=== PATIENT | male | born 1985 | race Hispanic/Latino ===

== ENCOUNTER 2022-12-08 13:58 | Emergency (ER) | payer BC, OTHER ==
--- OUTSIDE RECORDS SUMMARY | 2022-12-08 14:02 | XMS REPORT | Continuity of Care Document ---
:1985 Author Organization [facility] t Address [address] [place] [address] Care Team Providers Name Role Phone Markie Maria MD Primary Care Physician [facility] Attending Clinician Unavailable Unknown, Attending Attending Clinician Unavailable UNKNOWN, ATTENDING Attending Clinician Unavailable Payers Payer Name Policy Type Policy Number Effective Date Expiration Date S ource Problems This patient has no known problems. Allergies, Adverse Reactions, Alerts Allergy Allergy Status Severity Reaction(s) Onset Inactive Treating Comm ents Source Name Type Date Date Clinician NO KNOWN Drug Active Univers ALLERGIE Class ity of [facility] Social History Social Habit Start Date Stop Date Quantity Comments Source Exposure to 2022-11-28 2022-12-08 Not sure [facility] SARS-CoV-2 (event) 00:00:00 13:28:00 Medica l Branch Sex Assigned At [birth year] [facility] [place] 00:00:00 00:00:00 Medical Branch Smoking Status Start Date Stop Date Source Tobacco smoking consumption [facility] Medications This patient has no known medications. Vital Signs Vital Name Observation Time Observation Value Comments Source Systolic blood 2022-12-08 18:33:00 131 mm[Hg] Univer sity of pressure [facility] Diastolic blood 2022-12-08 18:33:00 83 mm[facility]Hg[facility] 2022-12-08 18:33:00 87 /min [facility] Body temperature 2022-12-08 18:33:00 36.56 Christine [facility] Respiratory rate 2022-12-08 18:33:00 16 /min [facility] Body height 2022-12-08 18:33:00 172.7 cm [facility] Body weight 2022-12-08 18:33:00 153.316 kg [facility] BMI 2022-12-08 18:33:00 51.39 kg/m2 [facility] Oxygen saturation in 2022-12-08 18:33:00 98 /min [facility] Arterial blood by [facility] Pulse oximetry [place] Procedures This patient has no known procedures. Encounters Start End Encounter Admission Attending Care Care Encounter Source Date/Time Date/Time Type Type Clinicians Facility Department ID 2022-12-08 2022-12-08 Nurse [facility] [id number] [facility] 13:45:00 14:05:00 Visit Unknown, Attending [facility] [id number] itto [facility] [id number] Naif as GONZALEZ?BLEA [id number] Ct bessy REGALADO [address] [place] [address] MEDICAL OFFICE BUILDING 2022-12-08 2022-12-08 Outpatient R UNKNOWN, [facility] [id number] Univers 13:45:00 13:45:00 ATTENDING ity [facility] Results This patient has no known results.
[2022-12-08 16:34] LABS: Absolute Lymphocytes (CBC) 2.3 K/uL (0.7-4.9); Hematocrit 47.8 % (39.6-49.0); Lymphocytes % 27.4 % (15.3-44.8); MCV 90.4 fL (80-100); RBC Red Blood Cell Count 5.29 M/uL (4.33-5.43)
[2022-12-08 16:51] LABS: Albumin 3.9 g/dL (3.4-5.0); Bilirubin Total 0.2 mg/dL (0.2-1.0); Potassium 4.1 mEq/L (3.5-5.1); Protein, Total 8.1 g/dL (6.4-8.2)
--- NOTE | 2022-12-08 17:39 | ER ---
Nurse's Notes [facility] Name: Manuel Mccracken Age: 37 yrs Sex: Male : 1985 Arrival Date: 12/08/2022 Time: 13:58 Bed 10 Private MD: Diagnosis: Acute Otalgia Presentation: 12/08 14:41 Chief complaint: Patient states: he has been being treated for an ear infection in his ap3 left ear for approx 2 weeks. He has been on antibiotics since 11/24/22 and the provider wanted him to come get evaluated to see if his infection is improving. Patient reports his hearing has improved and the pain is improving as well since starting the antibiotics. Coronavirus screen: At this time, the client does not indicate any symptoms associated with coronavirus-19. Ebola Screen: No symptoms or risks identified at this time. Initial Sepsis Screen: Does the patient meet any 2 criteria? No. Patient's initial sepsis screen is negative. Does the patient have a suspected source of infection? Yes: Other: recent infection dx. Risk Assessment: Do you want to hurt yourself or someone else? Patient reports no desire to harm self or others. Onset of symptoms was November 24, 2022. 14:41 Method Of Arrival: Ambulatory ap3 14:41 Acuity: JAZZY 4 ap3 Triage Assessment: 14:48 General: Appears in no apparent distress. Behavior is calm, cooperative, appropriate ap3 for age. Pain: Denies pain. EENT: Reports recent left ear infection. Neuro: Level of Consciousness is awake, alert, obeys commands, Oriented to person, place, time, situation. Cardiovascular: Patient's skin is warm and dry. Respiratory: Airway is patent Respiratory effort is even, unlabored, Respiratory pattern is regular, symmetrical. Historical: - Allergies: 14:44 No Known Allergies; ap3 - Home Meds: 14:44 terbinafine HCl 250 mg oral tablet daily [Active]; linezolid 600 mg oral tablet 1 tab 2 ap3 times per day [Active]; phentermine 37.5 mg oral tablet daily [Active]; - PMHx: 14:44 Hypertensive disorder; ap3 - Immunization history:: Client reports having NOT received the Covid vaccine. - Social history:: Smoking status: Reported history of juuling and/or vaping. Screenin:48 [facility] ED Fall Risk Assessment (Adult) History of falling in the last 3 months, ap3 including since admission No falls in past 3 months (0 pts). Abuse screen: Denies threats or abuse. Nutritional screening: No deficits noted. 14:49 Tuberculosis screening: No symptoms or risk factors identified. ap3 Assessment: 17:26 Reassessment: No changes from previously documented assessment. Patient and/or family mb9 updated on plan of care and expected duration. Pain level reassessed. Patient is alert, oriented x 3, equal unlabored respirations, skin warm/dry/pink. Vital Signs: 14:41 BP 140 / 95; Pulse 80; Resp 17; Temp 97.8; Pulse Ox 97% ; Weight 153.31 kg; Height 5 ap3 ft. 8 in. ; 18:06 BP 138 / 84; Pulse 74; Resp 20; Pulse Ox 98% on R/A; mb9 14:41 Body Mass Index 51.39 (153.31 kg, 172.72 cm) ap3 ED Course: 14:01 Patient arrived in ED. mr 14:11 Baldo Llanos PA is PHCP. jmm 14:11 Glen Sandoval MD is Attending Physician. jmm 14:44 Triage completed. ap3 14:49 Arm band placed on right wrist. ap3 14:49 Patient has correct armband on for positive identification. Adult w/ patient. ap3 16:30 Inserted saline lock: 22 gauge in right forearm, using aseptic technique. Blood zm collected. 16:30 CBC with Diff Sent. zm 16:30 CMP Sent. zm 16:30 Lipase Sent. zm 17:26 Dona Pleitez RN is Primary Nurse. mb9 17:27 No provider procedures requiring assistance completed. mb9 17:38 Dania Angel MD is Referral Physician. jmm 18:06 IV discontinued, intact, bleeding controlled, No redness/swelling at site. Pressure mb9 dressing applied. Administered Medications: No medications were administered Medication: 17:27 VIS not applicable for this client. mb9 Outcome: 17:38 Discharge ordered by . timi 18:06 Discharged to home ambulatory. mb9 18:06 Condition: stable 18:06 Discharge instructions given to patient, Instructed on discharge instructions, follow up and referral plans. Demonstrated understanding of instructions, follow-up care. 18:07 Patient left the ED. mb9 Signatures: Baldo Llanos PA PA jmm Rivera Dona Pat Jamil RN RN ap3 Mimi Morales Mary Beth, RN RN mb9
--- NOTE | 2022-12-08 17:39 | EDPHYS ---
Physician Documentation [facility] Name: Manuel Mccracken Age: 37 yrs Sex: Male : 1985 Arrival Date: 12/08/2022 Time: 13:58 Bed 10 Private MD: ED Physician Glen Sandoval HPI: 12/08 14:49 This 37 yrs old Male presents to ER via Ambulatory with complaints of Ear Pain.jmm 14:49 The patient presents with pain. Onset: The symptoms/episode began/occurred gradually, 1 jmm week(s) ago. This is a 37 year old male with a history of htn that presents to the ED with left ear pain. patient was diagnosed with mastoiditis approx 1 week ago. Currently on day 2 of abx. Advised by his pcp to evaluate for worsening infection. Patient states he is currently pain free, denies fever. . Historical: - Allergies: 14:44 No Known Allergies; ap3 - Home Meds: 14:44 terbinafine HCl 250 mg oral tablet daily [Active]; linezolid 600 mg oral tablet 1 tab 2 ap3 times per day [Active]; phentermine 37.5 mg oral tablet daily [Active]; - PMHx: 14:44 Hypertensive disorder; ap3 - Immunization history:: Client reports having NOT received the Covid vaccine. - Social history:: Smoking status: Reported history of juuling and/or vaping. ROS: 14:49 Constitutional: Negative for fever, chills, and weight loss, Cardiovascular: Negative jmm for chest pain, palpitations, and edema, Respiratory: Negative for shortness of breath, cough, wheezing, and pleuritic chest pain. 14:49 ENT: Positive for ear pain. 14:49 All other systems are negative. Exam: 14:49 Constitutional: This is a well developed, well nourished patient who is awake, alert, jmm and in no acute distress. Head/Face: atraumatic. Eyes: EOMI, no conjunctival erythema appreciated 14:49 Neck: Trachea midline, Supple Chest/axilla: Normal chest wall appearance and motion. Cardiovascular: Regular rate and rhythm. No edema appreciated Respiratory: Normal respirations, no respiratory distress appreciated Abdomen/GI: Non distended Back: Normal ROM Skin: General appearance color normal MS/ Extremity: Moves all extremities, no obvious deformities appreciated, no edema noted to the lower extremities Neuro: Awake and alert Psych: Behavior is normal, Mood is normal, Patient is cooperative and pleasant 14:49 ENT: TM's: erythema, that is moderate, on the left. Vital Signs: 14:41 BP 140 / 95; Pulse 80; Resp 17; Temp 97.8; Pulse Ox 97% ; Weight 153.31 kg; Height 5 ap3 ft. 8 in. ; 18:06 BP 138 / 84; Pulse 74; Resp 20; Pulse Ox 98% on R/A; mb9 14:41 Body Mass Index 51.39 (153.31 kg, 172.72 cm) ap3 MDM: 14:49 Patient medically screened. [facility] 17:07 Differential diagnosis: om, mastoiditis. Data reviewed: vital signs, nurses notes. [facility] Counseling: I had a detailed discussion with the patient and/or guardian regarding: the historical points, exam findings, and any diagnostic results supporting the discharge/admit diagnosis, lab results, the need for outpatient follow up, to return to the emergency department if symptoms worsen or persist or if there are any questions or concerns that arise at home. ED course: No mastoid tenderness on palpation. Labs unremarkable. Patient advised to follow up with his pcp for reevaluation and otherwise given strict return precautions. patient understood and agrees with the plan of care. . 05 14:49 Order name: CBC with Diff; Complete Time: 16:42 [facility] 12/08 14:49 Order name: CMP; Complete Time: 16:55 [facility] 12/08 14:49 Order name: Lipase; Complete Time: 16:55 [facility] 12/08 14:49 Order name: IV Saline Lock; Complete Time: 16:30 [facility] 12/08 14:49 Order name: Labs collected and sent; Complete Time: 16:30 [facility] Administered Medications: No medications were administered Disposition Summary: 12/08/22 17:38 Discharge Ordered Location: Home [facility] Condition: Stable [facility] Diagnosis - Acute Otalgia [facility] Followup: timi - With: Dania Angel MD - When: 2 - 3 days - Reason: Recheck today's complaints, Continuance of care, Re-evaluation by your physician Discharge Instructions: - Discharge Summary Sheet [facility] - Mastoiditis, Pediatric [facility] Forms: - Medication Reconciliation Form jmm - Thank You Letter jmm - Antibiotic Education jmm - Prescription Opioid Use dick Signatures: Dispatcher [employer] Baldo Patel PA PA jmm Prokisch, Amanda, RN RN ap3
[2022-12-08 18:40] VITALS: TEMP 97.8
[2022-12-08 18:41] VITALS: BP 138/84; O2SAT 98
== END 2022-12-08 18:07 | disposition home or self-care (01) ==
LOC: ER 13:58
DX: H92.02 Otalgia, left ear (principal); I10 Essential (primary) hypertension
CPT/HCPCS: 36415; 80053; 83690; 85025; 99283